=== PATIENT | female | born 1980 | race Hispanic/Latino ===

== ENCOUNTER 2024-05-23 17:28 | Emergency (ER) | payer BC ==
[~2024-05-23] VITALS: Ht 162.6 cm; Wt 94.8 kg
--- NOTE | 2024-05-23 17:43 | ERN ---
ED Note History of Present Illness Stated Complaint: BLURRED VISION SEEING SPOTS Chief Complaint: Blurred/Double Vision Time Seen by MD: 17:29 Dictation: PATIENT STATES SHE HAS HAD BLURRED VISION AND OCCASIONAL SPOTS ONSET WAS SATURDAY. SHE SAID THAT IS GONE OFF AND ON FOR SEVERAL DAYS STATES SHE HAS HAD A STROKE OF TWO YEARS AGO AND WAS TREATED AT [facility]. SHE CURRENTLY WEARS CORRECTIVE LENSES GLASSES SHE HAS HAD FOR THREE YEARS. SHE DID NOT GO SEE HER PRIMARY CARE DOCTOR TODAY BECAUSE THIS HAS HAPPENED BEFORE AND THEN IT WENT AWAY. CURRENTLY ALERT AND ORIENTED X4 SPEECH IS CLEAR NIH IS 0 AT THIS TIME. EOMS INTACT WITH NO DEMONSTRABLE VISUAL FIELD CUTS ON EXAM IN TRIAGE. SHE DENIES HEADACHE . 1741 PATIENT NOW STATES SHE DID SEE AN AGRICULTURAL CHEMICALS INSPECTOR LAST SATURDAY AT [facility]. SHE STATES SHE WAS HAVING THE PROBLEMS AT THAT TIME HOWEVER WAS IN DENIAL AND DID NOT TELL HIM. SHE STATES THEY DID A FULL EXAMINED INCLUDE DILATING HER EYES, GLAUCOMA PUFF TEST AND SHE WAS GIVEN A PRESCRIPTION. Allergies: Coded Allergies: No Known Drug Allergies (Unverified Allergy, Unknown, 05/23/24) Past Medical History History: Not Applicable RN Note Reviewed/Agreed w/PFSH: Yes Review of System Dictation CONSTITUTIONAL: NEGATIVE EXCEPT FOR HPI HEAD/FACE: NEGATIVE EXCEPT FOR HPI EENT: NEGATIVE EXCEPT FOR HPI INTERMITTENT VISION CHANGES RESPIRATORY: NEGATIVE EXCEPT FOR HPI GASTROINTESTINAL/ABDOMINAL: NEGATIVE EXCEPT FOR HPI GENITOURINARY: NEGATIVE EXCEPT FOR HPI MUSCULOSKELETAL: NEGATIVE EXCEPT FOR HPI INTEGUMENTARY: NEGATIVE EXCEPT FOR HPI NEUROLOGICAL/PSYCH: NEGATIVE EXCEPT FOR HPI HEMATOLOGIC/LYMPHATIC: NEGATIVE EXCEPT FOR HPI ALL SYSTEMS NEGATIVE, EXCEPT NOTED ABOVE. 13 POINT REVIEW OF SYSTEMS ASSESSED AND ALL NEGATIVE EXCEPT FOR ABOVE. Initial Vital Sign VS Vital Signs Date Time Temp Pulse Resp B/P (MAP) Pulse Ox O2 Delivery O2 Flow Rate FiO2 05/23/24 17:36 97.5 110 18 183/94 100 05/23/24 18:12 Room Air* 0 21 Physical Exam Dictation VITAL SIGNS REVIEWED GENERAL APPEARANCE: ALERT, ORIENTED X 3, NO ACUTE DISTRESS, WELL DEVELOPED, NOURISHED. HEAD AND FACE: NON-TRAUMATIC. EYES: PERRL, PINK CONJUNCTIVAS, EYELID NO TRAUMA, ANTERIOR CHAMBER WITH ARCUS SENILIS. EOMS INTACT, NO FIELD CUTS. EARS: PINNAS INTACT AND NO SIGNS OF TRAUMA OR ERYTHEMA EAR CANALS CLEAR AND NO DISCHARGE TM NO ERYTHEMA NOSE: NO DISCHARGE, NO BLEEDING. OROPHARYNX: MOUTH NORMAL, TONGUE PINK, PHARYNX CLEAR,NO ERYTHEMA, TONSILS NO EXUDATES, NO ABSCESSES NOTED, MUCOUS MEMBRANE MOIST NECK: SUPPLE, NON-TENDER, NO THYROMEGALY, NO MASSES, NO JVD, NO BRUITS BREAST:DEFERRED CHEST:NO TENDERNESS, NO CREPITUS, NO PARADOXICAL MOVEMENT, NO RETRACTIONS LUNGS:CLEAR, WELL-VENTILATED, SYMMETRIC, NO RALES, NO WHEEZING, NO RHONCHI, NO STRIDOR, GOOD BREATH SOUNDS BILATERALLY HEART: REGULAR RATE, REGULAR RHYTHM, NO MURMUR, NO GALLOPS VASCULAR: NO PERIPHERAL EDEMA, ABDOMEN: SOFT, POSITIVE BOWEL SOUNDS, NONDISTENDED, NO GUARDING, NONTENDER, NO REBOUND, NO MASSES NO HEPATOMEGALY, NO SPLENOMEGALY, NO THOMPSON'S SIGN, NO HERNIAS. RECTAL: DEFERRED GENITAL: DEFERRED NEUROLOGICAL: NORMAL SPEECH, MOTOR FUNCTION INTACT, SENSORY FUNCTION INTACT DENIES HEADACHE MUSCULOSKELETAL: NECK NONTENDER, FULL RANGE OF MOTION, BACK NONTENDER, FULL RANGE OF MOTION, EXTREMITIES: NONTENDER, FULL RANGE OF MOTION SKIN: COLOR PINK, DRY, NO TURGOR, NO RASH, NO LACERATIONS, NO ABRASIONS, NO CONTUSIONS. LYMPHATIC: DEFERRED Results (Laboratory/Radiology) Laboratory/Radiology PATIENT: EMMIE VENEGAS MR#: [id number] : 1980 SEX: F AGE: 44 LOCATION: [facility] ORDER 35 STATUS: [facility] REPORT#: [id number] SERVICE 35 REASON: INTERMITTENT VISION CHANGES BOTH EYES SINCE SATURDAY ORDERING PHYSICIAN: JANA SOLORZANO NP PROCEDURE: HEAD WO - CT HEAD/BRAIN W/O CONTRAST CT HEAD/BRAIN W/O CONTRAST CLINICAL HISTORY: INTERMITTENT VISION CHANGES BOTH EYES SINCE SATURDAY COMPARISON: None TECHNIQUE: Multiple sequential axial images of the head were obtained from the base of the skull through vertex. CT was performed with one or more of the following dose reduction techniques: automated exposure control, adjustment of the mA and/or kV according to patient size, or use of iterative reconstruction technique FINDINGS: The brain parenchyma and CSF spaces are unremarkable. The orbital contents, paranasal sinuses and mastoid air cells are within normal limits. The calvarium is intact. IMPRESSION: Normal study Labs Reviewed?: Yes ED Course ED Course Orders Procedure Category Date Status Time Ct Head/Brain W/O CT 05/23/24 Resulted Contrast 17:36 Visual Acuity Test CPOE 05/23/24 Transmitted (Er) 17:37 Vital Signs Date Time Temp Pulse Resp B/P (MAP) Pulse Ox O2 Delivery O2 Flow Rate FiO2 05/23/24 18:12 100 18 162/79 100 Room Air* 0 21 05/23/24 17:36 97.5 110 18 183/94 100 1858, visual acuity 20/100 left,20/50 right, 20/70 both eyes with correction. Patient also states she got her new prescription last week however has not gone to fill it yet. Medical Decision Making MDM Medical discharge making based on visual acuity test and CT of the head for acute abnormalities. No visual field cuts and patient has a new prescription from her doctor last week however has not filled it. Otherwise she is neurologically intact and NIH is 0. Patient is strongly encouraged to see her primary care doctor on Saturday or Saturday for follow up and to get her new glasses made. DX & DISP Disposition: Discharge Departure Impression: Primary Impression: Blurred vision, left eye Condition: Stable Additional Instructions: Follow-up with primary care provider in 1 to 2 days. Take medications as directed here in the emergency room. Okay to continue home medications unless otherwise discussed during your visit in the emergency room today. Return to your nearest emergency room if symptoms worsen or if there is no improvement. Call 911 if you need immediate assistance. Take Tylenol or Motrin o [id number] as needed and if no contraindications are present. Increase oral hydration. A wound culture or urine culture was ordered here in the emergency room department please follow-up with primary care provider and advise them to get repeat ports from our facility. If you had any Tano wrap/splints that were applied here, please do not remove them until you see your primary care or specialty. See your primary care doctor in 1-2 days for follow up and management. Otherwise, follow up with your television news video editor in the next 1-2 days. Referrals: ISSA MCCLELLAND (PCP) Time of Disposition: 19:01 I have reviewed the case, and I agree with, Diagnosis and Plan JANA SOLORZANO NP May 23, 2024 17:43
--- NOTE | 2024-05-23 18:35 | HMCIMG ---
CT HEAD/BRAIN W/O CONTRAST CLINICAL HISTORY: INTERMITTENT VISION CHANGES BOTH EYES SINCE SATURDAY COMPARISON: None TECHNIQUE: Multiple sequential axial images of the head were obtained from the base of the skull through vertex. CT was performed with one or more of the following dose reduction techniques: automated exposure control, adjustment of the mA and/or kV according to patient size, or use of iterative reconstruction technique FINDINGS: The brain parenchyma and CSF spaces are unremarkable. The orbital contents, paranasal sinuses and mastoid air cells are within normal limits. The calvarium is intact. IMPRESSION: Normal study
[2024-05-23 19:10] VITALS: BP 157/82; PULSE 88; RESP 20; TEMP 98.8; O2SAT 100
== END 2024-05-23 19:18 | disposition home or self-care (01) ==
LOC: EDH 17:28
DX: H53.8 Other visual disturbances (principal)
CPT/HCPCS: 70450; 99284